=== PATIENT | male | born 1940 | race Caucasian/White ===

== ENCOUNTER → 2017-06-08 | Outpatient (CLI) | payer MEDICARE, OTHER ==
[~2017-06-08] MED LIST: ADULT LOW DOSE81 MG PO; AMLODIPINE BESY10 MG PO; COREG CR40 MG PO; FISH OIL 1,0001 EAC5 PO; GLUCOPHAGE1000 MG PO; GLUCOTROL10 MG PO; IMURAN 50MG TAB50 M1 PO; JANUVIA100 MG PO; KLOR-CON 10 ER10 MEQ PO; PRINZIDE 20-251 EACH PO; VITAMIN D31000 UNI1 PO
[2017-06-08 11:10] LABS: CHOLESTEROL 137 mg/dL (<200); HDL CHOLESTEROL 47 mg/dL (>40); LDL CHOLESTEROL 73 mg/dL (<100); SERUM ASSESSMENT Clear; TC:HDL 2.9 Ratio (Not establshd); TRIGLYCERIDE 87 mg/dL (<150); VLDL 17 mg/dL (<40)
== END ==
LOC: M.LAB 10:39
PROVIDERS: Internal Medicine Cardiovascular Disease
DX: E11.9 Type 2 diabetes mellitus without complications (principal); I50.22 Chronic systolic (congestive) heart failure; I42.9 Cardiomyopathy, unspecified; I10 Essential (primary) hypertension